=== PATIENT | female | born 1955 | race Caucasian/White ===

== ENCOUNTER 2023-02-26 10:29 | Emergency (ER) | payer OTHER, MEDICAID ==
[~2023-02-26] VITALS: Ht 160 cm; Wt 73.9 kg
[2023-02-26 10:41] VITALS: BP 141/89
[2023-02-26] MEDS ORDERED: KETOROLAC 15 MG/ML VIAL IM ONE (11:35)
[2023-02-26] MEDS ORDERED: DEXAMETHASONE 4 MG/ML VIAL PO ONE (11:35)
--- NOTE | 2023-02-26 12:00 | NUR ---
seen by , will be dc home, no distress noted
[2023-02-26] MEDS ORDERED: IBUP-2213 PO (12:03)
[2023-02-26] MEDS ORDERED: FLONAS NS (12:04)
[2023-02-26 12:23] VITALS: BP 112/66
--- NOTE | 2023-02-26 12:25 | NUR ---
Patient discharged with v/s stable. Written and verbal after care instructions given and explained. Patient verbalized understanding. Ambulatory with steady gait. All questions addressed prior to discharge. Advised to follow up with PMD.
== END 2023-02-26 12:23 | disposition home or self-care (01) ==
LOC: MED 10:29
DX: J02.9 Acute pharyngitis, unspecified (principal); R09.82 Postnasal drip
CPT/HCPCS: 96372; 99283; J1100; J1885